=== PATIENT | female | born 1980 | race Hispanic/Latino ===

== ENCOUNTER 2017-01-20 19:06 | Outpatient (CLI) | payer OTHER ==
[~2017-01-20 19:06] MED LIST: AFRIN,GENASAL D15 ML BOTH NARES; ASPIRIN81 M2 PO; CIPRO250 MG PO; ENDOCET 5-3251 EACH PO; IBUPROFEN800 MG PO; PEPCID20 MG PO; PRENATAL TABLE1 EAC3 PO; VENTOLIN HFA18 GM IH; ZITHROMAX Z-PA250 MG PO
[2017-01-20 19:30] VITALS: BP 134/69
[2017-01-20] MEDS ORDERED: LABETALOL HCL300 MG PO (19:41)
== END 2017-01-20 20:05 | disposition home or self-care (01) ==
LOC: LDRP-OP 19:06 → 2WEST 19:07 → LDRP-OP 03-22 12:07
DX: O16.3 Unspecified maternal hypertension, third trimester (principal); Z3A.35 35 weeks gestation of pregnancy
CPT/HCPCS: 59025; G0378

== ENCOUNTER 2017-01-22 11:41 | Outpatient (CLI) | payer OTHER ==
[~2017-01-22] VITALS: Ht 154.9 cm; Wt 221.0 kg
[~2017-01-22 11:41] MED LIST changes: +LABETALOL HCL300 MG PO
[2017-01-22 12:10] VITALS: BP 136/82
[2017-01-22 12:36] VITALS: BP 143/79
[2017-01-22 13:07] VITALS: BP 164/76
[2017-01-22 13:13] VITALS: BP 149/71
[2017-01-22 13:47] VITALS: BP 141/67
[2017-01-22 14:13] VITALS: BP 143/67
== END 2017-01-22 14:36 | disposition home or self-care (01) ==
LOC: LDRP-OP 11:41 → 2WEST 11:42 → LDRP-OP 03-22 20:41
DX: O16.3 Unspecified maternal hypertension, third trimester (principal); Z3A.35 35 weeks gestation of pregnancy
CPT/HCPCS: 59025; G0378

== ENCOUNTER 2017-02-01 07:49 | Inpatient (IN) | payer OTHER ==
[~2017-02-01] VITALS: Ht 154.9 cm; Wt 100.5 kg
[2017-02-01] VITALS (13 sets, daily range): BP systolic 142–192; BP diastolic 66–100
[~2017-02-01 07:49] MED LIST changes: +EXTRA STRENGTH500 M1 PO; +PROCARDIA XL30 MG PO
[2017-02-01 08:44] LABS: HEMATOCRIT 36.4 % (36.0-46.0); MCH 30.5 PG (29.0-34.0); MCHC 33.5 G/DL (30.0-36.0); RBC DIS.WIDTH-SD 42.6 % (39-53); WHITE BLOOD COUNT 13.7 K/uL (4.1-10.2)
[2017-02-01 09:15] LABS: PLAT.SUFFICIENCY DECREASED
[2017-02-01 09:21] LABS: PLATELET COUNT UNABLE TO REPORT K/uL (156-360)
[2017-02-01] MEDS ORDERED: IBUPROFEN800 MG PO (14:26)
[2017-02-01] MEDS ORDERED: ENDOCET 5-3251 EACH PO (14:26)
[2017-02-02] VITALS (10 sets, daily range): BP systolic 95–147; BP diastolic 54–77
[2017-02-02 06:03] LABS: EOSINOPHIL (%) 0.1 % (0-5); IMMATURE GRANULOCYTE (%) 0.6 % (0.0-0.7); IMMATURE GRANULOCYTE COUNT 0.1 K/uL; INSTRUMENT ABS NEUTROPHIL CT 9.7 K/uL; MCH 29.3 PG (29.0-34.0); MCHC 32.9 G/DL (30.0-36.0); MCV 89.2 FL (83-99); MEAN PLAT.VOLUME 11.7 uM^3 (9.5-12.4); MONOCYTE (%) 6.5 % (3-12); MONOCYTE COUNT 0.9 K/uL (0-0.8); NEUTROPHIL (%) 70.4 % (45-76); NEUTROPHIL COUNT 9.7 K/uL (1.8-6.4); RBC DIS.WIDTH-CV 12.9 % (11.8-14.6); RBC DIS.WIDTH-SD 41.4 % (39-53); WHITE BLOOD COUNT 13.7 K/uL (4.1-10.2)
[2017-02-02 06:10] LABS: RED BLOOD COUNT 3.14 M/uL (3.80-5.20)
[2017-02-02 06:11] LABS: PLATELET COUNT 179 K/uL (156-360)
[2017-02-03 02:39] VITALS: BP 152/70
[2017-02-03 06:54] VITALS: BP 161/74
[2017-02-03 11:53] VITALS: BP 164/76
[2017-02-03 15:32] VITALS: BP 133/72
[2017-02-03 20:03] VITALS: BP 150/72
[2017-02-03 23:02] VITALS: BP 123/63
[2017-02-04 02:24] VITALS: BP 125/70
[2017-02-04 08:07] VITALS: BP 136/75
[2017-02-04] MEDS ORDERED: LABETALOL HCL200 MG PO (08:55)
[2017-02-04 11:09] VITALS: BP 151/72
[2017-02-04 14:57] VITALS: BP 138/64
== END 2017-02-04 15:50 | disposition home or self-care (01) | DRG 765 ==
LOC: 2SOUTH → 2WEST 07:49 → 2SOUTH 14:26 → 2WEST 02-04 15:50
PROVIDERS: Obstetrics & Gynecology
DX: O34.211 Maternal care for low transverse scar from previous cesarean delivery (principal); O10.92 Unspecified pre-existing hypertension complicating childbirth; Z30.2 Encounter for sterilization; E66.9 Obesity, unspecified; O99.214 Obesity complicating childbirth; Z3A.37 37 weeks gestation of pregnancy; Z37.0 Single live birth; O09.523 Supervision of elderly multigravida, third trimester
CPT/HCPCS: 85025; 85027; 86850; 86900; 86901; 88302; 93005; J0690; J1100; J1170; J2274; J2405; J3010; J7120